=== PATIENT | female | born 1995 | race Caucasian/White ===

== ENCOUNTER 2021-02-28 10:17 | Day surgery (SDC) | payer OTHER ==
[~2021-02-28] VITALS: Ht 175.3 cm; Wt 76.2 kg
[~2021-02-28 10:17] MED LIST: ACETAMINOPHEN 1000MG 100ML IV BTL (OFIRMEV) (J0131 PER 10MG) As Ordered ONE; ALIG4CAP PO; CYCL1TAB PO; CelecoXIB (CeleBREX) 100 MG CAP PO ONE; KETOROLAC 60MG 2ML VIAL As Ordered ONE; LIDOCAINE 2% 100MG/5ML SDV (FOR ANES.) As Ordered ONE; LR 1,000 ML IV ONE; MIDAZOLAM INJ 2MG/2ML VIAL (J2250 PER 1MG) As Ordered ONE; ONDANSETRON 4MG/2ML VIAL As Ordered ONE; ROCURONIUM BROMIDE 50 MG/5 ML VIAL As Ordered ONE; SUGAMMADEX SODIUM 500 MG/5 ML VIAL (BRIDION) As Ordered ONE; WELL100T2 PO; dexameTHASONE 4 MG/ML 1ML VIAL (J1100 PER 1MG) As Ordered ONE; fentaNYL 100 MCG/2 ML INJECTION (J3010) As Ordered ONE; propofoL 200 MG/20 ML VIAL As Ordered ONE
[2021-02-28] MEDS ORDERED: BUPIVACAINE HCL 0.25% 30ML VIAL As Ordered ONE (12:12)
[2021-02-28] MEDS ORDERED: LIDOCAINE 1% SDV 30ML VIAL As Ordered ONE (12:12)
[2021-02-28] MEDS ORDERED: diphenhydrAMINE 50MG/ML VIAL (J1200) As Ordered ONE (12:34)
[2021-02-28] MEDS ORDERED: OXYC1TAB23 PO (14:32)
[2021-02-28] MEDS ORDERED: oxyCODONE 5MG TAB PO PRN (14:50)
[2021-02-28] MEDS ORDERED: LR 1,000 ML IV SCH (14:50)
[2021-02-28] MEDS ORDERED: ONDANSETRON 4MG/2ML VIAL IV PRN (14:50)
[2021-02-28] MEDS ORDERED: fentaNYL 100 MCG/2 ML INJECTION (J3010) IV PRN (14:50)
[2021-02-28] MEDS ORDERED: PERCOCET 5MG/325MG TAB PO PRN (14:55)
[2021-02-28] MEDS ORDERED: KETOROLAC 30 MG/ML 1ML VIAL IV PRN (15:00)
[2021-02-28] MEDS: HYDROMORPHONE HCL 0.5 MG/ 0.5 ML SYRINGE (J1170 PER 1) IV PRN ×2 (15:02→15:08)
[2021-02-28] MEDS ORDERED: BENA25CA4 PO (15:53)
[2021-02-28 16:40] VITALS: BP 113/74
--- NOTE | 2021-03-12 01:46 | ROOPDOC ---
[facility] Report Of Operation Report of Operation DATE OF PROCEDURE: 03/03/21 PREPROCEDURE DIAGNOSES: multiple lipomas, left scapular lipoma, bilateral upper extremity lipomas. POSTPROCEDURE DIAGNOSES: multiple lipomas, left scapular lipoma, bilateral upper extremity lipomas. PROCEDURE: Excision of multiple lipomas. SURGEON: Alma Apple MD HUMANITIES INSTRUCTOR: Samantha Almaguer NP assisted with retraction during excision of left scapular lipoma and with excision of the multiple upper extremity li[mas ANESTHESIA: General Endotracheal Anesthesia. ESTIMATED BLOOD LOSS: Approximately 20 mL. COMPLICATIONS: none. REMARKS: Patient is brought to the operating room for removal of multiple lipomas including roughly about a 3-4 cm well-formed lipoma on her left scapula, multiple small lipomas on both upper extremities. I've remarked this lipomas in the preoperative holding area to a total of 5 small lipomas on the right and left arms each and a single left scapular lipoma was marked.. PROCEDURE NOTE: . Patient was brought to the operating room, placed initially supine on the table. General endotracheal anesthesia was started. Compression boots were placed on both lower extremities were DVT prophylaxis. She received Celebrex 400 mg by linh th preoperatively for postoperative pain control. She was placed on the right lateral decubitus position with her pressure points padded held in place with pillow wedges. The left back area was prepped and draped in the usual sterile fashion. The circumflex timeout She is a well-formed soft tissue lumps overlying the left scapula. The skin and soft tissue was liberally infiltrated with local anesthesia using a combination of 1% lidocaine and 14% Marcaine. A transverse incision was then created on top of the lump and then we proceeded taking this down through to the subcutaneous tissue. The overlying fascia to the scapular muscles was opened up and the lipoma was located. There is a well-formed fatty soft tissue within the muscles over the scapula which was removed circumferentially teasing this off the surrounding muscles. After removal of the cavity was palpated and examined for proper hemostasis. Once satisfied and closed the overlying fascia with 2-0 Vicryl, the septations tissue was approximated with 3-0 Vicryl and the skin was closed with 4-0 Monocryl in subcutaneous thickening fashion. Dermabond was then used for dressing. We then repositioned her supine with both arms on an armboard and both arms were prepped and draped circumferentially. I have premarked the area where her lipomas are located and this was in scattered circumferential location. She has a total of 5 lipomas and each arm all of which are about a centimeter or so or slightly just above 1 cm. There were hardened solid nodularities but overall well formed and just superficial in nature. In a similar fashion the surrounding skin and subcutaneous tissue was infiltrated with local anesthesia and a transverse incision was created on top of this small lipomas and the lipomas were circumferentially dissected and removed off the surrounding tissue. The skin was then closed in layers with 3-0 Vicryl at the subcutaneous tissue and 4- 0 Monocryl to close the skin. Dermabond was then used to cover the incisions. After removal of all the lipomas, she was promptly awake and extubated and brought to recovery room in stable condition. ALMA APPLE MD March 12, 2021 01:46
== END 2021-02-28 16:45 | disposition home or self-care (01) ==
LOC: M SDC 10:17
PROVIDERS: ATTEND Surgery
DX: D17.1 Benign lipomatous neoplasm of skin and subcutaneous tissue of trunk (principal); D17.22 Benign lipomatous neoplasm of skin and subcutaneous tissue of left arm; D17.21 Benign lipomatous neoplasm of skin and subcutaneous tissue of right arm; F41.9 Anxiety disorder, unspecified; F32.9 Major depressive disorder, single episode, unspecified; F43.10 Post-traumatic stress disorder, unspecified; R06.83 Snoring; Z88.0 Allergy status to penicillin; Z88.2 Allergy status to sulfonamides; Z79.899 Other long term (current) drug therapy; Z79.3 Long term (current) use of hormonal contraceptives; Z86.16 Personal history of COVID-19
CPT/HCPCS: 11402; 11404; 12035; 88304; J0131; J1100; J1170; J1200; J1885; J2250; J2405; J3010

== ENCOUNTER 2021-03-18 20:29 | Inpatient (IN) | payer OTHER ==
[~2021-03-18] VITALS: Ht 175.3 cm; Wt 74.3 kg
[~2021-03-18 20:29] MED LIST changes: -ACETAMINOPHEN 1000MG 100ML IV BTL (OFIRMEV) (J0131 PER 10MG) As Ordered ONE; +BENA25CA4 PO; -CelecoXIB (CeleBREX) 100 MG CAP PO ONE; -KETOROLAC 60MG 2ML VIAL As Ordered ONE; -LIDOCAINE 2% 100MG/5ML SDV (FOR ANES.) As Ordered ONE; -LR 1,000 ML IV ONE; -MIDAZOLAM INJ 2MG/2ML VIAL (J2250 PER 1MG) As Ordered ONE; -ONDANSETRON 4MG/2ML VIAL As Ordered ONE; +OXYC1TAB23 PO; -ROCURONIUM BROMIDE 50 MG/5 ML VIAL As Ordered ONE; -SUGAMMADEX SODIUM 500 MG/5 ML VIAL (BRIDION) As Ordered ONE; -dexameTHASONE 4 MG/ML 1ML VIAL (J1100 PER 1MG) As Ordered ONE; -fentaNYL 100 MCG/2 ML INJECTION (J3010) As Ordered ONE; -propofoL 200 MG/20 ML VIAL As Ordered ONE
[2021-03-18 21:41] LABS: HEMATOCRIT 40.9 % (36.0-47.0); HEMOGLOBIN 13.7 g/dl (12.0-15.5); MEAN CORPUSCULAR HEMOGLOBIN 30.6 pg (27.0-33.0); MEAN CORPUSCULAR HGB CONC 33.5 g/dl (32.0-36.5); MEAN CORPUSCULAR VOLUME 91.3 fl (80.0-96.0); PLATELET COUNT, AUTOMATED 229 10^3/uL (150-450); RED BLOOD COUNT 4.48 10^6/uL (4.00-5.40)
[2021-03-18 22:11] LABS: AMPHETAMINES LEVEL URINE NEGATIVE (NEGATIVE); BARBITURATES URINE NEGATIVE (NEGATIVE); BENZODIAZEPINES URINE NEGATIVE (NEGATIVE); CANNABINOIDS URINE NEGATIVE (NEGATIVE); COCAINE METABOLITE URINE NEGATIVE (NEGATIVE); METHADONE URINE NEGATIVE (NEGATIVE); OPIATES URINE NEGATIVE (NEGATIVE); PHENCYCLIDINE URINE NEGATIVE (NEGATIVE)
[2021-03-18 22:14] LABS: HCG, SERUM QUALITATIVE NEGATIVE (NEGATIVE)
[2021-03-18 22:22] LABS: ACETAMINOPHEN LEVEL < 2.0 UG/ML (10.0-30.0); ALBUMIN 3.6 GM/DL (3.2-5.2); ALT/SGPT 17 U/L (12-78); BILIRUBIN,DIRECT 0.1 MG/DL (0.0-0.2); BILIRUBIN,TOTAL 0.4 MG/DL (0.2-1.0); BLOOD UREA NITROGEN 9 MG/DL (7-18); CALCIUM LEVEL 8.9 MG/DL (8.5-10.1); CARBON DIOXIDE LEVEL 29 MEQ/L (21-32); CHLORIDE LEVEL 106 MEQ/L (98-107); CREATININE FOR GFR 1.02 MG/DL (0.55-1.30); ETHYL ALCOHOL (ETHANOL) < 0.003 % (0.000-0.010); GLOMERULAR FILTRATION RATE > 60.0 (>60); GLUCOSE, FASTING 67 MG/DL (70-100); POTASSIUM SERUM 3.5 MEQ/L (3.5-5.1); SALICYLATE LEVEL < 1.7 MG/DL (5.0-30.0); SODIUM LEVEL 140 MEQ/L (136-145); TOTAL PROTEIN 7.1 GM/DL (6.4-8.2)
[2021-03-19] MEDS ORDERED: ACETAMINOPHEN TAB 650MG DOSE (2X325MG) PO ONE (02:55)
[2021-03-19] MEDS ORDERED: NORTREL PO SCH (09:00)
[2021-03-19 14:14] LABS: RSV AMPLIFICATION NEGATIVE (NEGATIVE)
[2021-03-19] MEDS ORDERED: MOM 30ML SUSPENSION UDC PO PRN (21:40)
[2021-03-19] MEDS ORDERED: ACETAMINOPHEN TAB 650MG DOSE (2X325MG) PO PRN (21:40)
[2021-03-19] MEDS ORDERED: MAALOX 30 ML SUSP *UDC PO PRN (21:40)
[2021-03-19 23:40] VITALS: BP 121/79
[2021-03-20] MEDS: buPROPion (WELLBUTRIN SR) 100 MG SR TAB PO SCH ×2 (00:07→09:14)
[2021-03-20] MEDS: traZODone 50 MG TAB PO PRN ×2 (00:31→22:17)
--- NOTE | 2021-03-20 12:28 | MHHPEPDOC ---
General Date Of Admission: Mar 19, 2021 Legal Status: 9.39 Chief Complaint I have been feeling more depressed for the past 3 months ". History of Present Illness HISTORY OF THE PRESENT ILLNESS: Patient is a 25 -year-old , female, who [has a2 year history of depression and been in active treatment, but no prior inpatient admissions. Patient reports very little improvement with the counseling and medication of Wellbutrin and in the past week she is feeling more tired, feeling worthless, hopeless and is finding her job being overwhelming and difficult to complete. She is feeling sad, worthless at times hopeless, not able to concentrate and in the past few days she was having vague suicidal thoughts and came to emergency room by the advice of her counselor. She is denying any clear suicidal plan or intent, but is feeling unsafe and wants to feel better. She reports multiple stressors, which includes her mother having a relapse of breast cancer, recent of her father and difficulty in maintaining long-term relationship with a boyfriend. She has been receiving counseling and Wellbutrin 100 mg twice a day. Has initial minor improvement but is not getting much relief anymore.. She denies any alcohol or drug abuse issues and no major medical history]. Psychiatric Review of Systems Depression (2 or more weeks): depressed mood, anhedonia, feelings of worthlesness, decreased energy, difficulty concentrating, suicidal thoughts Lisseth (4 or more days of): denies Psychosis: denies PTSD: denies Anxiety: gen/non-specific anxiety Past Psychiatric History Previous Psychiatric Diagnosis: Major depression, Previous Psychiatric Admissions: . No history of inpatient treatment Suicide Attempts: . No history of attempt Psychiatric Follow-up: , Currently in outpatient treatment. Psychiatric medications: ., Wellbutrin SR 200 mg twice a day Past Medical History Medical Problems No major medical history Head Injury: No Seizures: No Hospitalizations: No Surgeries: No Family Medical/Psychiatric HX Medical Problems Mother has breast cancer. Father of a brain cancer Psychiatric Disorders: Yes Addiction: No Suicide Attemps/Completions: No (. Mother has a serious depression and father had to depression. Also) Addiction History denies Social History Childhood: Normal childhood . Abuse/Trauma:[No history of abuse]. Current [place]: [place] Education: [High school]. 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 Social Support: [, Supportive boyfriend, and the mother]. Legal: .. No legal issues Marital: . in steady relationship for 2 years Mental Status Examination General Appearance: well groomed, appears stated age Build: average Demeanor: average Eye Contact: average Activity: average Behavior: cooperative Speech: clear, spontaneous, normal volume Mood: depressed, anxious Affect: full Thought Process: logical/linear Thought Content (Delusions): none reported Thought Content (Other): none reported Thought Content (Aggressive): none reported Perception (Hallucinations): none reported Perception (Other): none reported Cognition (Impairment of): none reported Cognition(Intelligence Est.): average Oriented: Awake, Alert, Oriented times three Insight: fair Judgment: Good Psychosis: Denies Diagnoses Major depression, recurrent A-FIB/CHADSVASC A-FIB History Current/History of A-Fib/PAF?: No Current PO Anticoag Therapy: No Age/Risk Factor Scoring CHADSVASC: CHADSVASC Response (Comments) Value Gender Risk Factor Female 1 Hx of CHF No 0 Hx of HTN No 0 Hx of Stroke/TIA/or VTE No 0 Hx of Diabetes No 0 Hx of Vascular Disease No 0 Total 1 Treatment Treatment ordered: NONE Assessment Markedly depressed, but with a good insight and fair judgment and is willing to cooperate with the treatment. We will increase the Wellbutrin up to 400 mg daily. Continue the supportive therapy to stabilize. He does not appear to be acute suicidal risk Initial Treatment Plan 1. Patient was admitted on a 9.39 status. 2. Complete history was obtained. 3. With patients permission, family will be contacted and database will be expanded. 4. Patients medication regimen will be reviewed and changed accordingly. 5. Patient will be provided with protected environment. 6. Patient will be treated with individual, group, and milieu therapies. 7. Patient will receive supportive psych-education. 8. Discharge planning will commence immediately. 9. Outpatient follow-up treatment will be strongly recommended. 10. The initial treatment plan will focus initially on: * Depression. * Risk for suicide. ESTIMATED LENGTH OF STAY: 5-7 DAYS. TIME SPENT COUNSELING AND COORDINATING INITIAL CARE: 45 minutes. Tobacco Cessation Screen If Patient is a Smoker Nonsmoker N/A-No Antipsychotics Vital Signs Vital Signs Date Time Temp Pulse Resp B/P (MAP) Pulse Ox O2 Delivery O2 Flow Rate FiO2 03/19/21 23:40 99.4 87 16 121/79 (93) 100 Room Air Laboratory Data 24H Labs Laboratory Tests 2 03/19/21 13:05: Coronavirus (COVID-19)(PCR) NEGATIVE, Influenza Type A (RT-PCR) NEGATIVE, Influenza Type B (RT-PCR) NEGATIVE, Respiratory Syncytial Virus (PCR) NEGATIVE Medications Scheduled Bupropion HCl (Wellbutrin Sr) 100 Mg Tab.sr.12h, 100 MG PO BID, (Reported) Norethindrone-Ethinyl Estrad (Cyclafem 1-35-28 Tablet) 1 Each Tablet, 1 TAB PO DAILY, (Reported) Allergies Coded Allergies: povidone-iodine (Verified Allergy, Intermediate, hives, 02/28/21) soap (Verified Allergy, Intermediate, hives, 02/28/21) Sulfa (Sulfonamide Antibiotics) (Verified Allergy, Unknown, pins/needles- itchy, 02/13/21) amoxicillin (Verified Allergy, Unknown, hives-swelling of throat, 02/13/21) ZENAIDA TOM M.D. Mar 20, 2021 12:28
[2021-03-20] MEDS: CYCLAFEM PO SCH (13:20)
[2021-03-20 16:16] VITALS: BP 122/74
--- NOTE | 2021-03-20 16:42 | HPEPDOC ---
General Date of Admission Mar 19, 2021 at 21:40 Date of Service: Mar 20, 2021 Chief Complaint The patient is a 25-year-old female admitted with a reason for visit of Unspecified Depressive Do. 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 She is being examined here for medical history and physical. Patient reports that she has been so fatigued this weekend that she just wanted to . She reports that [place] this chronic fatigue going on for years and she is being worked up for autoimmune disease. She has been referred to a Senior Linux [employer] Administrator for this . She had multiple special tests, hormone studies etc. She also complains of intermittent episodes of SOB and Wheezing. Denies having any PFT before. Also complains of constipation. Home Medications Scheduled Bupropion HCl (Wellbutrin Sr) 100 Mg Tab.sr.12h, 100 MG PO BID, (Reported) Norethindrone-Ethinyl Estrad (Cyclafem 1-35-28 Tablet) 1 Each Tablet, 1 TAB PO DAILY, (Reported) Allergies Coded Allergies: povidone-iodine (Verified Allergy, Intermediate, hives, 02/28/21) soap (Verified Allergy, Intermediate, hives, 02/28/21) Sulfa (Sulfonamide Antibiotics) (Verified Allergy, Unknown, pins/needles- itchy, 02/13/21) amoxicillin (Verified Allergy, Unknown, hives-swelling of throat, 02/13/21) Past Medical History Medical History Chronic Fatigue being worked up for Autoimmune disease by PMD. Surgical History Multiple lipomas removed from back, fore arms. Family History Patient's mom was adapted so does not have much family hisotry. Mother is healthy. Did not know her father. Social History * Smoker: non-smoker Drugs: denies A-FIB/CHADSVASC A-FIB History Current/History of A-Fib/PAF?: No Age/Risk Factor Scoring CHADSVASC: CHADSVASC Response (Comments) Value Gender Risk Factor Female 1 Hx of CHF No 0 Hx of HTN No 0 Hx of Stroke/TIA/or VTE No 0 Hx of Diabetes No 0 Hx of Vascular Disease No 0 Total 1 Review of Systems Constitutional: Reports: Fatigue; Denies: Chills, Fever, Night Sweats Eyes: Denies: Pain, Vision change ENT: Denies: Head Aches, Ear Pain, Dysphagia Skin: Denies: Rash, Lesions, Breakdown Pulmonary: Reports: Cough Cardiovascular: Denies: Chest Pain, Palpitations, Orthopnea, Paroxysmal Noc. Dyspnea, Lt Headedness Gastrointestinal: Reports: Constipation; Denies: Nausea, Vomiting, Abdominal Pain, Diarrhea Genitourinary: Denies: Dysuria, Frequency, Incontinence, Retention Physical Examination General Exam: Positive: Alert, Cooperative, No Acute Distress Eye Exam: Positive: PERRLA, Conjunctiva & lids normal, EOMI; Negative: Sclera icteric ENT Exam: Positive: Atraumatic, Mucous membr. 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 She is being examined here for medical history and physical. Depression As per [facility]. No acute medical problems at this time. Plan / VTE VTE Prophylaxis Ordered?: No SILVESTRE SOW MD Mar 20, 2021 14:18
[2021-03-20] MEDS: buPROPion **SR TABLET** (ZYBAN) 150MG PO SCH (20:27)
[2021-03-21 06:19] VITALS: BP 108/55
[2021-03-21] MEDS: CYCLAFEM PO SCH (08:48)
[2021-03-21] MEDS: buPROPion **SR TABLET** (ZYBAN) 150MG PO SCH (08:49)
[2021-03-21] MEDS ORDERED: BUPR15TASR PO (09:17)
--- NOTE | 2021-03-21 12:40 | MHDSPDOC ---
[facility] Discharge Summary Discharge Summary DATE OF ADMISSION: Mar 19, 2021 at 21:40 DATE OF DISCHARGE: Mar 21, 2021 at 10:18 DISCHARGE DIAGNOSES: 1. . Major depression, recurrent 2. . REASON FOR ADMISSION: Has a long history of depression and has been experiencing increasing symptoms of hopelessness, helplessness, with the poor energy and concentration, and vague suicidal thoughts CONSULTANTS INVOLVED: , None TREATMENT AND PROGRESS ON THE UNIT : Patient was seen for supportive therapy. Lethality evaluation, and Wellbutrin was increased to 150 mg twice a day. Patient is fully cooperated, maintained good control, and denied any suicidal thoughts. She. She is feeling very anxious and uneasy on the inpatient unit and is requesting discharge. There was a acutely agitated patients on the unit and apparently some threats were made and she does not feel safe and is asking for discharge and has a good deal of support and safety network and is willing to continue outpatient treatment. She is tolerating Wellbutrin okay and denies any suicidal thoughts.. HOSPITAL COURSE: Remained in good control, pleasant, cooperative, and denies any suicidal thoughts DISCHARGE ASSESSMENT: The patient is stable and did not appear acutely suicidal MENTAL STATUS EXAMINATION ON DISCHARGE: Patient is a 25-year old female, who is , pleasant, cooperative. Speech is productive, organized. Language skills are good. Thought processes including: Well organized Thought content: . No psychotic symptoms. No suicidal thoughts. Abstract reasoning, and computation: [Good]. Description of associations: [Well-organized]. Description of abnormal or psychotic thoughts: [Non-]. Judgment: [Good]. Insight: [Good]. Orientation to [, well oriented, good]. Recent and remote memory: [Good]. Attention span and concentration: Good. Language: . Fund of knowledge: . Mood: [, Not as depressed]. Affect: [, Bright and appropriate]. MEDICATIONS ON DISCHARGE: - , Wellbutrin SR 150 mg twice a day for [7 days with 3 refills]. - for . - for . PLAN/FOLLOWUP ARRANGEMENTS: [Arranged by the resource management planner]. The amount of time spent in the coordination of care for this patient was approximately [35] minutes. ETOH/Disorder Med Rx ETOH/DRUG DISORDER RX: N/A Vital Signs/I&Os Vital Signs Date Time Temp Pulse Resp B/P (MAP) Pulse Ox O2 Delivery O2 Flow Rate FiO2 03/21/21 06:19 99.5 104 16 108/55 (72) 100 Room Air Medications Scheduled Bupropion HCl (Bupropion HCl Sr) 150 Mg Tab.er.12h, 150 MG PO BID for depression for 7 Days, #14 Norethindrone-Ethinyl Estrad (Cyclafem 1-35-28 Tablet) 1 Each Tablet, 1 TAB PO DAILY, (Reported) Allergies Coded Allergies: povidone-iodine (Verified Allergy, Intermediate, hives, 02/28/21) soap (Verified Allergy, Intermediate, hives, 02/28/21) Sulfa (Sulfonamide Antibiotics) (Verified Allergy, Unknown, pins/needles- itchy, 02/13/21) amoxicillin (Verified Allergy, Unknown, hives-swelling of throat, 02/13/21) ZENAIDA TOM M.D. Mar 21, 2021 12:40
== END 2021-03-21 10:18 | disposition home or self-care (01) | DRG 885 ==
LOC: M ED 20:29 → M ED INP 03-19 21:40 → M PSY 03-19 23:25
PROVIDERS: ADMIT Psychiatry & Neurology Psychiatry; ATTEND Psychiatry & Neurology Psychiatry
DX: F33.9 Major depressive disorder, recurrent, unspecified (principal); Z81.8 Family history of other mental and behavioral disorders; Z63.79 Other stressful life events affecting family and household; Z79.899 Other long term (current) drug therapy; Z88.0 Allergy status to penicillin; Z88.2 Allergy status to sulfonamides; Z88.8 Allergy status to other drugs, medicaments and biological substances; Z91.048 Other nonmedicinal substance allergy status; Z20.822 Contact with and (suspected) exposure to COVID-19